=== PATIENT | female | born 1950 ===

== ENCOUNTER 2016-09-25 18:37 | Observation (INO) | payer OTHER ==
[~2016-09-25] VITALS: Ht 175.3 cm; Wt 96.0 kg
[~2016-09-25 18:37] MED LIST: ALBUTEROL HFA60 DOSE IN; ASCORBIC ACID500 MG PO; B COMPLEX PO; CO-ENZYME Q10100 MG PO; FLAX SEED PO; FOLIC ACID1 MG PO; LUNESTA3 MG PO; LUTEIN20 MG PO; MAG-OX 400400 MG PO; NAIL-EX2.5 MG PO; NATURAL VITA200 UNIT PO; OMEPRAZOLE20 M1 PO; SINGULAIR10 MG PO; TRAMADOL HCL50 MG PO; TUMS500 MG PO; VENLAFAXINE H37.5 MG PO; ZYRTEC ALLERGY10 MG PO; [UNRECOGNIZED DRUG - OTHER] PO
--- NOTE | 2016-09-25 19:19 | DIAGNOSTIC IMAGING REPORT ---
PROCEDURE: XR CHEST 1 VIEW INDICATION: SHORTNESS OF BREATH TECHNIQUE: Portable AP view (1910 hours). COMPARISON: None. FINDINGS: Allowing for overlying wires and electrodes, lungs are clear. Heart and mediastinum are normal. Thorax is normal. IMPRESSION: 1. Negative chest.
--- NOTE | 2016-09-25 20:08 | ED ORDER SUMMARY ---
..... Patient: NELSON COPE OrderSheet [facility] VisitID: [id number] [place] [address] 65y, F Registration Date/Time: 09/25/2016 ORDER SHEET Weight: 81.6 kg (stated) Allergies: NSAIDs GENERAL ORDERS: Chest 1V Urgent (18:58 09/25/2016 Shayla Case) (Ack 19:00 TBergley) (19:43 Tano) Cardiac Panel Stat (18:58 09/25/2016 Shayla Case) (18:59 TBergley) BNP Urgent (18:58 09/25/2016 Shayla Case) (18:59 TBergley) D-Dimer Urgent (18:58 09/25/2016 Shayla Case) (18:59 TBergley) PT with INR Urgent (19:43 09/25/2016 Shayla Case) (19:47 AMcQuoid ER Tech1) PTT Urgent (19:43 09/25/2016 Shayla Case) (19:47 AMcQuoid ER Tech1) Type & Cross (severe anemia) (duh) Urgent (19:47 09/25/2016 Shayla Case) (Ack 19:48 AMcQuoid ER Tech1) MEDICATION ORDERS: IV FLUIDS: Protonix IVP 80mg 80 mg (Mix in NS 20ml over 4min) (19:53 09/25/2016 Shayla Case) (20:06 Misha) ORDER SHEET NOTES: [Electronically signed by Ligia Chambers (20:44 09/25/2016)] [Electronically signed by Hector Flores Dr. (20:17 09/26/2016)] [Electronically locked/signed by Ligia Chambers (20:44 09/25/2016)]
--- NOTE | 2016-09-25 20:08 | ED NURSING NOTES ---
Clinical Report - Nurses [facility] [address] [place] [address] 09/25/2016 18:38 Patient: NELSON COPE TRIAGE Acuity: LEVEL 3. Chief Complaint: SHORTNESS OF BREATH and (fatigue). Alert. No acute distress. SEPSIS SCREEN: Sepsis Screen. Negative (no infection suspected/documented). --18:49 La Saldaña R.N. 18:42 09/25/16. BP: 142/56. HR: 100. RR: 20. O2 saturation: 100% on room air. Temp: 98 F (oral). Pain level now: 0/10. --18:49 La Saldaña R.N. Weight: 81.6 kg stated. Height/Length: 69 inches Per Patient. BMI: 26.6. --18:47 La Saldaña R.N. Medications Albuterol Sulfate Oral. Ascorbic Acid Oral. Co-Enzyme Q-10 Oral. Eszopiclone Oral. Maxalt Oral. Nasonex Nasal. Qvar Inhalation. Robaxin-750 Oral. Tramadol HCL Oral. Venlafaxine HCl Oral. Vitamin E Oral. ZyrTEC Allergy Oral. --18:45 La Saldaña R.N. Medication/allergy information source: the patient. --18:49 La Saldaña R.N. Allergies NSAIDs. Severe(Anaphylaxis) --18:46 La Saldaña R.N. History Arrived by private vehicle. Historian: patient. Unaccompanied. Primary physician (Harley). Onset. (several days ago). ( Pt reports she becomes SOB upon exertion and her heart rate goes up. She states a history of anemia.). Treatment GRAIN LOADER: None. PAST MEDICAL HX: The patient is post-menopausal. SOCIAL HX: Former smoker, end date 2007. Occasional alcohol use. History of occasional drug use: marijuana. FALL RISK ASSESSMENT: Fall risk assessment completed. No fall risk identified. NUTRITIONAL RISK ASSESSMENT: The nutritional risk assessment revealed no deficiencies. FUNCTIONAL ASSESSMENT: Functional assessment: no impairments noted. LEARNING NEEDS ASSESSMENT: The learning needs assessment revealed no barriers. SKIN INTEGRITY ASSESSMENT: Skin integrity risk assessment completed. No skin integrity risk identified. --18:49 La Saldaña R.N. PROBLEMS: Anemia. GI Bleeding. Depression. Anxiety Reaction. Mosiac Lung Disease. Hiatal Hernia. Asthma. --18:46 La Saldaña R.N. ADDITIONAL SURGERIES: Bone spur removal bilat. Bunionectomy right. Tonsillectomy. Tubal Ligation. --18:46 La Saldaña R.N. Assessment GENERAL / NEURO / PSYCH: Alert. Oriented X 4. Appears in no acute distress. Darian Coma Scale: 15- eyes open spontaneously (4); best verbal response- oriented x 4 (5); best motor response- obeys commands (6). Patient appears calm and cooperative. RESPIRATORY: Respirations not labored. CVS: Capillary refill less than 2 seconds. GI / : Abdomen soft and nontender. SKIN: Skin is pale. Mucous membranes are pink. Skin is warm and dry. --18:49 La Saldaña R.N. Interventions ID band on patient. To treatment room. --18:49 La Saldaña R.N. PHYSICAL ASSESSMENT 18:51 09/25/16. Ambulatory to room. GENERAL / NEURO / PSYCH: Alert. Oriented X 4. Appears in no acute distress. HEENT: Mucous membranes are pink. RESPIRATORY: No respiratory distress. Respirations not labored. CVS: Capillary refill less than 2 seconds. SKIN: Skin is pale. Skin is warm and dry. Normal skin turgor. --18:51 La Saldaña R.N. 18:53 09/25/16. CVS: Cardiac rhythm: sinus tachycardia. --18:53 La Saldaña R.N. NURSING PROGRESS NOTES 18:50 09/25/2016 Site #1 started via IV in the left antecubital space with an 20g angiocath, with aseptic technique and good blood return; one attempt. Blood drawn: rainbow set. Labeled in the presence of the patient and sent to the lab. Saline lock flushed with 10 mL saline (started by RAMAN Strong RN). --18:50 La Saldaña R.N. 18:50 09/25/16. grainer machine, pulse oximeter and NIBP monitor placed on patient; clearance diver- Lead II; monitor alarms on. Patient gowned. Two patient identifiers checked. Call light placed in reach. Side rails up x 2. Bed placed in lowest position. Brakes of bed on. Patient ready for evaluation- chart flagged and ED physician and CREW LEADER/CONTROL ROOM OPERATOR notified. --18:50 La Saldaña R.N. EKG time: (1849). EKG was ordered, performed by a tech and shown to the ED physician. --18:56 Merle Chaudhary Critical value relayed to ED by Lab. Critical value received by Ligia. Hgb: 5.5. Hct: 18.2. Critical value read back. Verified lab result and patient ID. ED physician and charge nurse notifed of critical value. Orders were not received. --19:22 Ligia Chambers ( Rectal exam performed by Dr. Flores, accompanied by DAHIANA Flores. Pt tolerated well. Specimen for hemoccult obtained.). --19:50 Mark Obregon R.N. 20:06 09/25/2016 PROTONIX (Pantoprazole Sodium) IVP 80 mg given. via site #1. Allergies verified and confirmed 5 rights. IV patency established. IV site checked: no pain, redness, or swelling. IV flushed thoroughly pre- and post-medication administration. IVP given by RN. --20:06 Ligia Chambers 20:10 09/25/16. BP: 124/56. HR: 90. RR: 20. O2 saturation: 100%. --20:12 Ligia Chambers. DISPOSITION / DISCHARGE Departure time: 2044. Report was given to a nurse via a phone call. Report included patient's care, treatment, medications, reviewed medication reconcilliation, and condition (including any recent changes or anticipated changes). All questions were answered. Report was acknowledged and care was transferred. --20:41 Ligia Chambers Transported via stretcher by transport team. Patient's personal items; items were transported with the patient. --20:41 Ligia Chambers. Locked/Released at 09/25/2016 20:44 by Ligia Chambers,
--- NOTE | 2016-09-25 20:08 | ED NURSING NOTES ---
Clinical Report - Nurses [facility] [address] [place] [address] 09/25/2016 18:38 Patient: NELSON COPE TRIAGE Acuity: LEVEL 3. Chief Complaint: SHORTNESS OF BREATH and (fatigue). Alert. No acute distress. SEPSIS SCREEN: Sepsis Screen. Negative (no infection suspected/documented). --18:49 La Saldaña R.N. 18:42 09/25/16. BP: 142/56. HR: 100. RR: 20. O2 saturation: 100% on room air. Temp: 98 F (oral). Pain level now: 0/10. --18:49 La Saldaña R.N. Weight: 81.6 kg stated. Height/Length: 69 inches Per Patient. BMI: 26.6. --18:47 La Saldaña R.N. Medications Albuterol Sulfate Oral. Ascorbic Acid Oral. Co-Enzyme Q-10 Oral. Eszopiclone Oral. Maxalt Oral. Nasonex Nasal. Qvar Inhalation. Robaxin-750 Oral. Tramadol HCL Oral. Venlafaxine HCl Oral. Vitamin E Oral. ZyrTEC Allergy Oral. --18:45 La Saldaña R.N. Medication/allergy information source: the patient. --18:49 La Saldaña R.N. Allergies NSAIDs. Severe(Anaphylaxis) --18:46 La Saldaña R.N. History Arrived by private vehicle. Historian: patient. Unaccompanied. Primary physician (Harley). Onset. (several days ago). ( Pt reports she becomes SOB upon exertion and her heart rate goes up. She states a history of anemia.). Treatment INSEAM TRIMMER: None. PAST MEDICAL HX: The patient is post-menopausal. SOCIAL HX: Former smoker, end date 2007. Occasional alcohol use. History of occasional drug use: marijuana. FALL RISK ASSESSMENT: Fall risk assessment completed. No fall risk identified. NUTRITIONAL RISK ASSESSMENT: The nutritional risk assessment revealed no deficiencies. FUNCTIONAL ASSESSMENT: Functional assessment: no impairments noted. LEARNING NEEDS ASSESSMENT: The learning needs assessment revealed no barriers. SKIN INTEGRITY ASSESSMENT: Skin integrity risk assessment completed. No skin integrity risk identified. --18:49 La Saldaña R.N. PROBLEMS: Anemia. GI Bleeding. Depression. Anxiety Reaction. Mosiac Lung Disease. Hiatal Hernia. Asthma. --18:46 La Saldaña R.N. ADDITIONAL SURGERIES: Bone spur removal bilat. Bunionectomy right. Tonsillectomy. Tubal Ligation. --18:46 La Saldaña R.N. Assessment GENERAL / NEURO / PSYCH: Alert. Oriented X 4. Appears in no acute distress. Darian Coma Scale: 15- eyes open spontaneously (4); best verbal response- oriented x 4 (5); best motor response- obeys commands (6). Patient appears calm and cooperative. RESPIRATORY: Respirations not labored. CVS: Capillary refill less than 2 seconds. GI / : Abdomen soft and nontender. SKIN: Skin is pale. Mucous membranes are pink. Skin is warm and dry. --18:49 La Saldaña R.N. Interventions ID band on patient. To treatment room. --18:49 La Saldaña R.N. PHYSICAL ASSESSMENT 18:51 09/25/16. Ambulatory to room. GENERAL / NEURO / PSYCH: Alert. Oriented X 4. Appears in no acute distress. HEENT: Mucous membranes are pink. RESPIRATORY: No respiratory distress. Respirations not labored. CVS: Capillary refill less than 2 seconds. SKIN: Skin is pale. Skin is warm and dry. Normal skin turgor. --18:51 La Saldaña R.N. 18:53 09/25/16. CVS: Cardiac rhythm: sinus tachycardia. --18:53 La Saldaña R.N. NURSING PROGRESS NOTES 18:50 09/25/2016 Site #1 started via IV in the left antecubital space with an 20g angiocath, with aseptic technique and good blood return; one attempt. Blood drawn: rainbow set. Labeled in the presence of the patient and sent to the lab. Saline lock flushed with 10 mL saline (started by RAMAN Strong RN). --18:50 La Saldaña R.N. 18:50 09/25/16. forest supervisor, pulse oximeter and NIBP monitor placed on patient; hotel server- Lead II; monitor alarms on. Patient gowned. Two patient identifiers checked. Call light placed in reach. Side rails up x 2. Bed placed in lowest position. Brakes of bed on. Patient ready for evaluation- chart flagged and ED physician and TECHNOLOGY INTEGRATION SPECIALIST notified. --18:50 La Saldaña R.N. EKG time: (1849). EKG was ordered, performed by a tech and shown to the ED physician. --18:56 Merle Chaudhary Critical value relayed to ED by Lab. Critical value received by Ligia. Hgb: 5.5. Hct: 18.2. Critical value read back. Verified lab result and patient ID. ED physician and charge nurse notifed of critical value. Orders were not received. --19:22 Ligia Chambers ( Rectal exam performed by Dr. Flores, accompanied by DAHIANA Flores. Pt tolerated well. Specimen for hemoccult obtained.). --19:50 Mark Obregon R.N. 20:06 09/25/2016 PROTONIX (Pantoprazole Sodium) IVP 80 mg given. via site #1. Allergies verified and confirmed 5 rights. IV patency established. IV site checked: no pain, redness, or swelling. IV flushed thoroughly pre- and post-medication administration. IVP given by RN. --20:06 Ligia Chambers 20:10 09/25/16. BP: 124/56. HR: 90. RR: 20. O2 saturation: 100%. --20:12 Ligia Chambers. DISPOSITION / DISCHARGE Departure time: 2044. Report was given to a nurse via a phone call. Report included patient's care, treatment, medications, reviewed medication reconcilliation, and condition (including any recent changes or anticipated changes). All questions were answered. Report was acknowledged and care was transferred. --20:41 Ligia Chambers Transported via stretcher by transport team. Patient's personal items; items were transported with the patient. --20:41 Ligia Chambers. Locked/Released at 09/25/2016 20:44 by Ligia Chambers,
--- NOTE | 2016-09-25 20:08 | ED CLINICAL REPORT ---
Clinical Report - Physicians/Mid Levels [facility] [address] [place] [address] 09/25/2016 18:38 Patient: NELSON COPE Time Seen: 18:53; initial patient contact. Arrived- By private vehicle. Historian- patient. HISTORY OF PRESENT ILLNESS Chief Complaint: DYSPNEA. This started several days ago and is still present. It was gradual in onset. The dyspnea is described as moderate and is worsened by walking and exertion and is improved by rest. No cough, sputum production, fever, sweating episodes or wheezing. No chills, chest pain or discomfort, calf pain or foot swelling. No anxiety. She has had dyspnea on exertion and palpitations. Similar symptoms previously: Several times. Recent medical care: Not recently seen/assessed. REVIEW OF SYSTEMS No nausea, vomiting, abdominal pain, diarrhea or bloody stools. No fainting episodes or blurred vision. She has had black stools. All systems otherwise negative, except as recorded above. PAST HISTORY Anemia. GI Bleeding. Depression. Anxiety Reaction. Mosiac Lung Disease. Hiatal Hernia. Asthma. SURGERIES: Bone spur removal bilat. Bunionectomy right. Tonsillectomy. Tubal Ligation. Medications: Albuterol Sulfate Oral. Ascorbic Acid Oral. Co-Enzyme Q-10 Oral. Eszopiclone Oral. Maxalt Oral. Nasonex Nasal. Qvar Inhalation. Robaxin-750 Oral. Tramadol HCL Oral. Venlafaxine HCl Oral. Vitamin E Oral. ZyrTEC Allergy Oral. Allergies: NSAIDs. Severe(Anaphylaxis). SOCIAL HISTORY Former smoker. Occasional alcohol use. History of occasional drug use: marijuana. ADDITIONAL NOTES The nursing notes have been reviewed. PHYSICAL EXAM Vital Signs: 09/25/2016 18:42 BP: 142/56. HR: 100. RR: 20. O2 saturation: 100%. Temp: 98 F. Pain level now: 0/10. Have been reviewed. Hypertensive. Tachycardic. Respiratory rate normal. Temperature normal. Oxygen saturation normal. Appearance: Alert. No acute distress. Eyes: Pale conjunctivae. ENT: Pharynx normal. Neck: Normal inspection. No jugular venous distention. CVS: Tachycardia. 1/6 systolic ejection murmur. Rhythm normal. Respiratory: No respiratory distress. Breath sounds normal. Abdomen: Soft and nontender. No organomegaly. The bowel sounds are not abnormal. Rectal: Strongly heme-positive stool; blood present in the stool; stools are dark colored; hemoccult research associate quality control qc check passed. (POC test reference range: negative). No digital exam tenderness. (Female RN Mark Man present for exam). Skin: Pale. Extremities: No calf tenderness. No lower extremity edema. Neuro: Oriented X 3. No motor deficit. LABS, X-RAYS, AND EKG EKG: EKG time: (1849). Normal sinus rhythm. Rate: 99. Normal P waves. Normal ÁNGEL. Normal QRS complex. Normal axis. Normal ST and T waves, QT and QTc. Prior EKG unavailable. The study has been interpreted contemporaneously by me. The study has been independently viewed by me. The EKG appears to be a good tracing. Interpretation time: 1849. Chest X-ray: No acute disease. Normal lung markings present. Normal heart size. No infiltrate. Views: AP. Technique: good. The X-rays were independently viewed by me and interpreted contemporaneously by me. Prior films were not available for comparison. Laboratory Tests: CBC w Diff: (VERONICA: 09/25/2016 18:50) ( MsgRcvd 09/25/2016 19:21) Final results Test Result Flag Units (Reference) WHITE BLOOD COUNT 11.3 K/uL (4.5-11.5) RED BLOOD COUNT 2.86 L M/uL (4.00-5.20) HEMOGLOBIN 5.5 *L gm/dL (12.0-16.0) CRITICAL RESULTS CALLEDCalled to Anjelica NG 09/25/161919Were 2 patient identifiers used? YWas the result read back? Y HEMATOCRIT 18.2 *L % (36.0-46.0) CRITICAL RESULTS CALLEDCalled to Anjelica NG 09/25/161919Were 2 patient identifiers used? YWas the result read back? Y MEAN CELL VOLUME 64 L fL (80-100) MEAN CORPUSCULAR HGB 19 L pg (26-34) MEAN CORPUSCULAR HGB CONC 30 L g/dL (31-37) RED CELL DISTRIBUTION WIDTH 19.2 H % (11.6-14.8) PLATELET COUNT 363 K/uL (150-400) NEUTROPHIL % 68.4 % (50-75) LYMPH % 18.5 L % (25-40) MONO % 11.3 % (3-14) EOSINOPHIL % 1.4 % (0-4) BASOPHIL % 0.4 % (0-2) PT with INR: (VERONICA: 09/25/2016 18:50) ( [facility] 09/25/2016 19:59) Final results Test Result Flag Units (Reference) INR 1.0 (0.8-1.2) Low Intensity Therapy: INR 1.5-2.0 PT range 18.5-23.1Mod.Intensity Therapy: INR 2.0-3.0 PT range 23.1-31.5High Intensity Therapy: INR 2.5-3.5 PT range 27.4-35.5High Intensity Therapy 2: INR 3.0-4.0 PT range 31.5-39.3 APTT 24 SECONDS (24-34) [id number]: (VERONICA: 09/25/2016 18:50) ( [facility] 09/25/2016 19:15) Final results Test Result Flag Units (Reference) D-DIMER QUANTITATIVE 1.42 H ug/mLFEU (0.27-0.52) The primary value of this quantitative assay relates toits negative predictive value (i.e. exclusion) of pulmonaryembolism/deep vein thrombosis/DIC.Elevated levels of d-dimer may also occur with:, age, cancer, inflammation, liver disease,post-op, infection, hematoma, coronary disease, peripheralarteriopathy, bleeding disorders and thrombolytic treatment.Results should be correlated with other clinical andradiological data.Testing Methodology: Latex Immunoassay BNP: (VERONICA: 09/25/2016 18:50) ( [facility] 09/25/2016 19:34) Final results Test Result Flag Units (Reference) B-TYPE NATRIURETIC PEPTIDE 122 H pg/ml (5-100) CHEM 13 PANEL: (VERONICA: 09/25/2016 18:50) ( MsgRcvd 09/25/2016 19:29) Final results Test Result Flag Units (Reference) GLUCOSE 98 mg/dL (70-110) BUN 29 H mg/dL (7-18) CREATININE 1.4 H mg/dL (0.6-1.3) Estimated GFR 40.24 mL/min Estimated GFR- 48.77 mL/min Note: Persistent reduction over 3 months in eGFR<60 mL/min/1.73 m2 defines CKD. Patients with eGFR values>=60 mL/min/1.73 m2 may also have CKD if evidence ofpersistent proteinuria. Additional information may be foundat www.kidney.org. SODIUM 141 mmol/L (136-145) POTASSIUM 4.6 mmol/L (3.5-5.1) CHLORIDE 107 mmol/L (98-107) CARBON DIOXIDE 23 mmol/L (21-32) CALCIUM 8.1 L mg/dL (8.5-10.1) TOTAL PROTEIN 6.4 g/dL (6.4-8.2) ALBUMIN 3.3 g/dL (3.3-5.0) BILIRUBIN, TOTAL 0.3 mg/dL (0.0-1.0) ALKALINE PHOSPHATASE 58 U/L (46-116) AST (SGOT) 11 L U/L (15-37) ALT (SGPT) 16 U/L (12-78) MAGNESIUM 1.8 mg/dL (1.8-2.4) CPK 56 U/L (24-260) TROPONIN I 0.07 ng/mL (0.00-1.5) TROPONIN REFERENCE RANGE:<0.1 NEGATIVE0.1-1.5 INDETERMINANT>1.5 POSITIVE . PROGRESS AND PROCEDURES Critical care performed (60 minutes). Time includes: direct patient care, patient reassessment, coordination of patient care, interpretation of data (laboratory data, pulse oximetry, chest xrays and prior electrocardiograms), review of patient's medical records, medical consultation and documentation of patient care. The patient required critical care due to the acute impairment of vital organ systems (cardiovascular and hematologic) and a high probability of imminent deterioration. Multiple emergent interventions were required to prevent sudden deterioration. Discussed case with hospitalist, (20:10 Dr. Vazquez, will palce in obs and consult Sx). Reviewed test results and need for additional work-up. Agreed upon treatment plan. Health care provider will see patient in ED. Consult obtained from surgery. call returned 20:25 Dr. Hall, will see pt in the AM and EGD. Phone consult only. Will see patient in the hospital tomorrow. Disposition: Observation in Acute Care. Condition: good. CLINICAL IMPRESSION Major GI bleed with melena. Severe acute anemia associated with acute blood loss. INSTRUCTIONS Follow-up: Screening today revealed the patient's blood pressure to be in the pre-hypertensive range. The patient was admitted and blood pressure will be managed during the admission. (Electronically signed by Hector Flores Dr. 09/26/2016 20:17)
--- NOTE | 2016-09-25 20:08 | ED ORDER SUMMARY ---
..... Patient: NELSON COPE OrderSheet [facility] VisitID: [id number] [place] [address] 65y, F Registration Date/Time: 09/25/2016 ORDER SHEET Weight: 81.6 kg (stated) Allergies: NSAIDs GENERAL ORDERS: Chest 1V Urgent (18:58 09/25/2016 Shayla Case) (Ack 19:00 TBergley) (19:43 Tano) Cardiac Panel Stat (18:58 09/25/2016 Shayla Case) (18:59 TBergley) BNP Urgent (18:58 09/25/2016 Shayla Case) (18:59 TBergley) D-Dimer Urgent (18:58 09/25/2016 Shayla Case) (18:59 TBergley) PT with INR Urgent (19:43 09/25/2016 Shayla Case) (19:47 AMcQuoid ER Tech1) PTT Urgent (19:43 09/25/2016 Shayla Case) (19:47 AMcQuoid ER Tech1) Type & Cross (severe anemia) (duh) Urgent (19:47 09/25/2016 Shayla Case) (Ack 19:48 AMcQuoid ER Tech1) MEDICATION ORDERS: IV FLUIDS: Protonix IVP 80mg 80 mg (Mix in NS 20ml over 4min) (19:53 09/25/2016 Shayla Case) (20:06 Misha) ORDER SHEET NOTES: [Electronically signed by Ligia Chambers (20:44 09/25/2016)] [Electronically signed by Hector Flores Dr. (20:17 09/26/2016)] [Electronically locked/signed by Ligia Chambers (20:44 09/25/2016)]
[2016-09-25 21:03] VITALS: BP 145/63
--- NOTE | 2016-09-25 21:29 | Progress Note ---
Subjective General Admission History and Physical Examination Patient Name: Ms. Kelly Herron Admission Date: 09/25/2016 Primary Care Provider: Sasha Souza D.O., [facility] Attending Physician: Jean Vazquez M.D. Admitting Physician: Jean Vazquez M.D. Code Status: Code Room: SUBJECTIVE Historian: Patient Reliability: Very good Chief Complaint: CC: Shortness of breath, palpitations with activity Anemia History of Present Illness: The patient is a 65-year-old white female with a significant past medical history of asthma, sleep disorder, depression, chronic back and heel who presented to [facility] emergency room on the day of admission secondary to complaints dyspnea and SOB with associated rapid heartbeat with movement. Patient reported that she had been into donate blood at the local blood bank. There are was discovered that her iron was quite low. Patient also reported weakness and tiredness. The [facility] ER evaluation was consistent with blood loss anemia. Secondary to the above, the patient was admitted by Jean Vazquez M.D. for further evaluation and treatment. Patient states that she had a recent 2 week history of feeling tired and weak. Patient most recently had been in for a blood donation at the local blood bank. There was discovered that her iron levels and hematocrit was low. Therefore, she is not eligible for blood donation. Reports that she had not been in to see her primary care provider. Attempted to continue to work through it. Patient had worsening symptoms today. Patient attempted to follow her normal work schedule. Patient however felt breathless and her heart began to pound during the day. Patient has a history of a stomach bleed in 2014. Patient is hospitalized at that time, his [facility] and she was given 2 units of PRBCs. Patient was seen for a scope procedure by Dr. Hall. No significant findings were noted. PAST MEDICAL HISTORY Illnesses: 1. Sleep disorder. 2. Chronic lower back pain, foot, ankle pain. 3. Depression 4. Asthma. 5. Anxiety Allergies: 1. Aspirin. 2. NSAIDs including ibuprofen. 3. Cats. Medications: 1. Ezopiclone 3mg po daily 2. Tramadol 50 mg by mouth twice a day. 3. Venlafaxine 37.5 mg daily. 4. Montelukast 10 mg po daily 5.Norththindrone 10mg po Q48 hours 6. Estradiol 0.5 mg every 48 hours. 7. Maxalt 10 micrograms when necessary 8. Restasis 0.05 mg by mouth twice a day 9. [place]-3 fatty acids daily 10. Zyrtec 10 mg by mouth daily Surgery: 1. Tubal ligation. 2. Tonsillectomy. 3. Endoscopy Injuries: 1. No significant injuries Hospitalizations: 1. 2015 GI bleed FAMILY HISTORY Parents: 1. Father, healthy living at age 89. 2. Mother Alzheimer's dementia 86 Siblings: 1. Sister recently passing December 2014 from complications related to diabetes, Children: 1. None SOCIAL HISTORY 1. Marital Status: Single, never 2. Shinto: None jew identity 3. 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 Occupational health exposures: None identified HABITS 1. Tobacco: Stopped smoking 6 months ago Prior 30 last year smoking history 2. Drugs: Last had marijuana 1 week ag; social use. Last time used was more than 20 years prior 3. Alcohol: Last had alcohol one week one beer; drinker, rare 4. Caffeine: None HEALTH SUPERVISION Item/Test 1. Vision screen: Completed 2. Cholesterol Profile: One year normal 3. Colonoscopy: Last on 2014 4. History and physical exam: Annually for January 10. Audiogram: Annual 6. Mammogram: One year previous. No problems 7. Pap/pelvic exam: 2 years. No problems IMMUNIZATIONS: 1. Pneumococcal: up to date ADVANCED DIRECTIVES: 1. Living well: Prepared; in the presence of present 2. POLST: None 3. Code Status: no code 4. Durable Power Pigment [employer] Lacquer Mixer Health care: [id number]: Carlton Ochoa, 5. Donor card: Unknown REVIEW OF SYSTEMS Remarkable for those things stated in the history of present illness and past medical history. Seventeen point review of system completed with the following notable findings: ROS Constitutional Weakness, Other (pallor). Denies: Fever. Eyes Other (dry eyes). Denies: Pain. Respiratory SOB w/exertion. Denies: Wheezing. Cardiovascular Other (rapid). Denies: Chest Pain, Palpitations. Gastrointestinal Other (a previous GI bleed). Neurological Weakness. Denies: Numbness, Change in speech, Confusion. Physical Exam Vital Signs / I&Os Vital Signs Date Time Temp Pulse Resp B/P Pulse O2 O2 Flow FiO2 Ox Delivery Rate 09/25 2102 98.8 87 20 145/63 99 Room Air General Appearance Oriented X3, Cooperative, No acute distress HEENT Atraumatic Lungs Clear to auscultation, Normal air movement Neck Supple, No JVD Cardiovascular Regular rate and rhythm, Normal S1 and S2, possible 2/6 systolic Abdomen Soft, No tenderness Extremities No cyanosis, No clubbing Neurological Normal gait, Normal speech Psych/Mental Status Mood normal LAB Results Laboratory Tests 09/25 09/25 1850 1850 Chemistry Plasma Sodium (136 - 145 mmol/L) 141 Plasma Potassium (3.5 - 5.1 mmol/L) 4.6 Plasma Chloride (98 - 107 mmol/L) 107 CO2 (Enzymatic) (21 - 32 mmol/L) 23 BUN (7 - 18 mg/dL) 29 Creatinine (0.6 - 1.3 mg/dL) 1.4 Est GFR ( Amer) (mL/min) 48.77 Est GFR (Non-Af Amer) (mL/min) 40.24 Glucose (70 - 110 mg/dL) 98 Plasma Calcium (8.5 - 10.1 mg/dL) 8.1 Plasma Magnesium (1.8 - 2.4 mg/dL) 1.8 Total Bilirubin (0.0 - 1.0 mg/dL) 0.3 AST (15 - 37 U/L) 11 ALT (12 - 78 U/L) 16 Alkaline Phosphatase (46 - 116 U/L) 58 Creatine Kinase (24 - 260 U/L) 56 Troponin (0.00 - 1.5 ng/mL) 0.07 B-Natriuretic Peptide (5 - 100 pg/ml) 122 Total Protein (6.4 - 8.2 g/dL) 6.4 Albumin (3.3 - 5.0 g/dL) 3.3 Coagulation INR (0.8 - 1.2) 1.0 APTT (24 - 34 SECONDS) 24 D-Dimer, Quantitative (0.27 - 0.52 ug/mLFEU) 1.42 Hematology WBC (4.5 - 11.5 K/uL) 11.3 RBC (4.00 - 5.20 M/uL) 2.86 Hgb (12.0 - 16.0 gm/dL) 5.5 Hct (36.0 - 46.0 %) 18.2 MCV (80 - 100 fL) 64 MCH (26 - 34 pg) 19 RDW (11.6 - 14.8 %) 19.2 Neut % (Auto) (50 - 75 %) 68.4 Lymph % (Auto) (25 - 40 %) 18.5 [place] % (Auto) (3 - 14 %) 11.3 Eos % (Auto) (0 - 4 %) 1.4 Baso % (Auto) (0 - 2 %) 0.4 Plt Count, EDTA (150 - 400 K/uL) 363 RBC Morphology (7486 A) 1+ HYPOCHROMASIA PUBS MCHC (31 - 37 g/dL) 30 Imaging Chest x-ray done on 09/25/2016. Seen as a negative chest Assessment and Plan Problem List 1. GI bleed Qualifiers GI bleed type/associated pathology: melena Qualified Code: K92.1 - Melena Status Acute Plan Patient had a prior GI bleed. Nothing was necessarily discovered on endoscopy. This is not necessarily related to NSAID induced, patient has not had significant alcohol over the past 6 months to year. Patient is not on iron supplementation. Last menstrual period was sometime ago. Patient MCV is low at 64. Hemoglobin 5.5. Appears to have mild renal insufficiency (undetermined pre-renal azotemia) with a BUN 29, creatinine 1.4. Having a FENA would be appropriate, but will hold off. The d-dimer is slightly elevated in the setting of no chest pain, low probability for PE. We'll start patient on fluid hydration, follow-up electrolytes in the a.m, along with magnesium. Consults: General surgery for potential upper and lower endoscopy. She has been crossmatched 2 units of PRBC. Serial H&H every 4 hours the next 24 hours. Watch for any further signs of bleeding. If further drop in H&H. We'll plan to start on an octreotide and call in for an emergent endoscopy. 2. Anemia Plan Most likely related to blood loss. Current hemoglobins at 5.5, MCV is 64. Dictated harm panel to be placed on earlier labs; if not, then this will been on [facility]. May need is starting some form of iron supplementation. Patient received 2 units PRBCs followed by recheck. 3. Ulcer, gastric, acute Plan Likely gastric ulcer or gastritis causing blood loss anemia. Patient is been under undue stress recently. Therefore , probability for an emotionally induced GI ulceration. However, overlooked the possibility of a rare neuroendocine tumor. 4. SOB (shortness of breath) Plan Shortness of breath is secondary to the anemia Current status: Fair. stable Anticipated discharge date: 1- days from admission Anticipated discharge placement: Home Patient care time: Time spent in chart review, patient interview, physical exam, CPOE, and care documentation: 70 minutes Visit to patient today: 1 Complexity of care: Mild-moderate. E&M Codes Admit & Discharge: Comp/High/[id number]
--- NOTE | 2016-09-25 21:29 | Progress Note ---
Subjective General Admission History and Physical Examination Patient Name: Ms. Kelly Herron Admission Date: 09/25/2016 Primary Care Provider: Sasha Souza D.O., [facility] Attending Physician: Jean Vazquez M.D. Admitting Physician: Jean Vazquez M.D. Code Status: Code Room: SUBJECTIVE Historian: Patient Reliability: Very good Chief Complaint: CC: Shortness of breath, palpitations with activity Anemia History of Present Illness: The patient is a 65-year-old white female with a significant past medical history of asthma, sleep disorder, depression, chronic back and heel who presented to [facility] emergency room on the day of admission secondary to complaints dyspnea and SOB with associated rapid heartbeat with movement. Patient reported that she had been into donate blood at the local blood bank. There are was discovered that her iron was quite low. Patient also reported weakness and tiredness. The [facility] ER evaluation was consistent with blood loss anemia. Secondary to the above, the patient was admitted by Jean Vazquez M.D. for further evaluation and treatment. Patient states that she had a recent 2 week history of feeling tired and weak. Patient most recently had been in for a blood donation at the local blood bank. There was discovered that her iron levels and hematocrit was low. Therefore, she is not eligible for blood donation. Reports that she had not been in to see her primary care provider. Attempted to continue to work through it. Patient had worsening symptoms today. Patient attempted to follow her normal work schedule. Patient however felt breathless and her heart began to pound during the day. Patient has a history of a stomach bleed in 2014. Patient is hospitalized at that time, his [facility] and she was given 2 units of PRBCs. Patient was seen for a scope procedure by Dr. Hall. No significant findings were noted. PAST MEDICAL HISTORY Illnesses: 1. Sleep disorder. 2. Chronic lower back pain, foot, ankle pain. 3. Depression 4. Asthma. 5. Anxiety Allergies: 1. Aspirin. 2. NSAIDs including ibuprofen. 3. Cats. Medications: 1. Ezopiclone 3mg po daily 2. Tramadol 50 mg by mouth twice a day. 3. Venlafaxine 37.5 mg daily. 4. Montelukast 10 mg po daily 5.Norththindrone 10mg po Q48 hours 6. Estradiol 0.5 mg every 48 hours. 7. Maxalt 10 micrograms when necessary 8. Restasis 0.05 mg by mouth twice a day 9. [place]-3 fatty acids daily 10. Zyrtec 10 mg by mouth daily Surgery: 1. Tubal ligation. 2. Tonsillectomy. 3. Endoscopy Injuries: 1. No significant injuries Hospitalizations: 1. 2015 GI bleed FAMILY HISTORY Parents: 1. Father, healthy living at age 89. 2. Mother Alzheimer's dementia 86 Siblings: 1. Sister recently passing December 2014 from complications related to diabetes, Children: 1. None SOCIAL HISTORY 1. Marital Status: Single, never 2. Tenriism: None religion identity 3. 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 Occupational health exposures: None identified HABITS 1. Tobacco: Stopped smoking 6 months ago Prior 30 last year smoking history 2. Drugs: Last had marijuana 1 week ag; social use. Last time used was more than 20 years prior 3. Alcohol: Last had alcohol one week one beer; drinker, rare 4. Caffeine: None HEALTH SUPERVISION Item/Test 1. Vision screen: Completed 2. Cholesterol Profile: One year normal 3. Colonoscopy: Last on 2014 4. History and physical exam: Annually for January 10. Audiogram: Annual 6. Mammogram: One year previous. No problems 7. Pap/pelvic exam: 2 years. No problems IMMUNIZATIONS: 1. Pneumococcal: up to date ADVANCED DIRECTIVES: 1. Living well: Prepared; in the presence of present 2. POLST: None 3. Code Status: no code 4. Durable Power [facility] Insurance Representative Health care: [id number]: Carlton Ochoa, 5. Donor card: Unknown REVIEW OF SYSTEMS Remarkable for those things stated in the history of present illness and past medical history. Seventeen point review of system completed with the following notable findings: ROS Constitutional Weakness, Other (pallor). Denies: Fever. Eyes Other (dry eyes). Denies: Pain. Respiratory SOB w/exertion. Denies: Wheezing. Cardiovascular Other (rapid). Denies: Chest Pain, Palpitations. Gastrointestinal Other (a previous GI bleed). Neurological Weakness. Denies: Numbness, Change in speech, Confusion. Physical Exam Vital Signs / I&Os Vital Signs Date Time Temp Pulse Resp B/P Pulse O2 O2 Flow FiO2 Ox Delivery Rate 09/25 2102 98.8 87 20 145/63 99 Room Air General Appearance Oriented X3, Cooperative, No acute distress HEENT Atraumatic Lungs Clear to auscultation, Normal air movement Neck Supple, No JVD Cardiovascular Regular rate and rhythm, Normal S1 and S2, possible 2/6 systolic Abdomen Soft, No tenderness Extremities No cyanosis, No clubbing Neurological Normal gait, Normal speech Psych/Mental Status Mood normal LAB Results Laboratory Tests 09/25 09/25 1850 1850 Chemistry Plasma Sodium (136 - 145 mmol/L) 141 Plasma Potassium (3.5 - 5.1 mmol/L) 4.6 Plasma Chloride (98 - 107 mmol/L) 107 CO2 (Enzymatic) (21 - 32 mmol/L) 23 BUN (7 - 18 mg/dL) 29 Creatinine (0.6 - 1.3 mg/dL) 1.4 Est GFR ( Amer) (mL/min) 48.77 Est GFR (Non-Af Amer) (mL/min) 40.24 Glucose (70 - 110 mg/dL) 98 Plasma Calcium (8.5 - 10.1 mg/dL) 8.1 Plasma Magnesium (1.8 - 2.4 mg/dL) 1.8 Total Bilirubin (0.0 - 1.0 mg/dL) 0.3 AST (15 - 37 U/L) 11 ALT (12 - 78 U/L) 16 Alkaline Phosphatase (46 - 116 U/L) 58 Creatine Kinase (24 - 260 U/L) 56 Troponin (0.00 - 1.5 ng/mL) 0.07 B-Natriuretic Peptide (5 - 100 pg/ml) 122 Total Protein (6.4 - 8.2 g/dL) 6.4 Albumin (3.3 - 5.0 g/dL) 3.3 Coagulation INR (0.8 - 1.2) 1.0 APTT (24 - 34 SECONDS) 24 D-Dimer, Quantitative (0.27 - 0.52 ug/mLFEU) 1.42 Hematology WBC (4.5 - 11.5 K/uL) 11.3 RBC (4.00 - 5.20 M/uL) 2.86 Hgb (12.0 - 16.0 gm/dL) 5.5 Hct (36.0 - 46.0 %) 18.2 MCV (80 - 100 fL) 64 MCH (26 - 34 pg) 19 RDW (11.6 - 14.8 %) 19.2 Neut % (Auto) (50 - 75 %) 68.4 Lymph % (Auto) (25 - 40 %) 18.5 [place] % (Auto) (3 - 14 %) 11.3 Eos % (Auto) (0 - 4 %) 1.4 Baso % (Auto) (0 - 2 %) 0.4 Plt Count, EDTA (150 - 400 K/uL) 363 RBC Morphology (7486 A) 1+ HYPOCHROMASIA PUBS MCHC (31 - 37 g/dL) 30 Imaging Chest x-ray done on 09/25/2016. Seen as a negative chest Assessment and Plan Problem List 1. GI bleed Qualifiers GI bleed type/associated pathology: melena Qualified Code: K92.1 - Melena Status Acute Plan Patient had a prior GI bleed. Nothing was necessarily discovered on endoscopy. This is not necessarily related to NSAID induced, patient has not had significant alcohol over the past 6 months to year. Patient is not on iron supplementation. Last menstrual period was sometime ago. Patient MCV is low at 64. Hemoglobin 5.5. Appears to have mild renal insufficiency (undetermined pre-renal azotemia) with a BUN 29, creatinine 1.4. Having a FENA would be appropriate, but will hold off. The d-dimer is slightly elevated in the setting of no chest pain, low probability for PE. We'll start patient on fluid hydration, follow-up electrolytes in the a.m, along with magnesium. Consults: General surgery for potential upper and lower endoscopy. She has been crossmatched 2 units of PRBC. Serial H&H every 4 hours the next 24 hours. Watch for any further signs of bleeding. If further drop in H&H. We'll plan to start on an octreotide and call in for an emergent endoscopy. 2. Anemia Plan Most likely related to blood loss. Current hemoglobins at 5.5, MCV is 64. Dictated harm panel to be placed on earlier labs; if not, then this will been on [facility]. May need is starting some form of iron supplementation. Patient received 2 units PRBCs followed by recheck. 3. Ulcer, gastric, acute Plan Likely gastric ulcer or gastritis causing blood loss anemia. Patient is been under undue stress recently. Therefore , probability for an emotionally induced GI ulceration. However, overlooked the possibility of a rare neuroendocine tumor. 4. SOB (shortness of breath) Plan Shortness of breath is secondary to the anemia Current status: Fair. stable Anticipated discharge date: 1- days from admission Anticipated discharge placement: Home Patient care time: Time spent in chart review, patient interview, physical exam, CPOE, and care documentation: 70 minutes Visit to patient today: 1 Complexity of care: Mild-moderate. E&M Codes Admit & Discharge: Comp/High/[id number]
[2016-09-25] MEDS ORDERED: ESTRADIOL0.5 MG PO (22:04)
[2016-09-25] MEDS ORDERED: [UNRECOGNIZED DRUG - OTHER] PO (22:08)
[2016-09-25] MEDS ORDERED: RESTASIS0.05 % OP (22:09)
[2016-09-25 22:26] VITALS: BP 164/65
--- NOTE | 2016-09-25 23:30 | NUR ---
Admitted with shortness of breath and easy fatiguability. She looks pale and came in with a low blood count. She is due for 2 units PRBC tonight and is for a repeat H & H in the morning.
[2016-09-25 23:38] VITALS: BP 149/71
[2016-09-25 23:53] VITALS: BP 139/68
[2016-09-26] VITALS (12 sets, daily range): BP systolic 109–168; BP diastolic 43–70
--- NOTE | 2016-09-26 05:27 | Progress Note ---
Subjective General ADVANCED CARE PLAN History of Present Illness 65-year-old white female with a significant past medical history of asthma, sleep disorder, depression, chronic back and heel who presented to [facility] emergency room on the day of admission secondary to complaints dyspnea and SOB with associated rapid heartbeat with movement. Patient reported that she had been into donate blood at the local blood bank. There it was discovered that her iron was quite low. Patient also reported weakness and tiredness. The [facility] ER evaluation was consistent with blood loss anemia. Secondary to the above, the patient was admitted by Jean Vazquez M.D. for further evaluation and treatment. A discussion was undertaken with the patient regarding previous advance care arrangements/decisions. The following advanced directives were noted by the patient and discussed with me at the time of admission. ADVANCED DIRECTIVES: 1. Living well: yes 2. POLST: none 3. CODE STATUS: No Code 4. Durable Power Fiscal ManagerCounts include [facility] beds at the [facility] care: yes; Carlton Ochoa, 5. Donor card: none The patient has expressed interest in not pursuing any form of resuscitation at this time. She has opted not to pursue intubation/mechanical ventilation, CPR, electrical cardioversion, or life-sustaining efforts involving drugs at the time of cardiopulmonary arrest. The patient's wishes were documented in the chart and orders regarding the patient's wishes entered into the [employer] CPOE system. The "Advance Care Plan Document" was not distributed to patient to discuss with her family. Less than 30 minutes was spent in performing the above tasks and documentation of the patient's advanced care plan.
--- NOTE | 2016-09-26 05:27 | Progress Note ---
Subjective General ADVANCED CARE PLAN History of Present Illness 65-year-old white female with a significant past medical history of asthma, sleep disorder, depression, chronic back and heel who presented to [facility] emergency room on the day of admission secondary to complaints dyspnea and SOB with associated rapid heartbeat with movement. Patient reported that she had been into donate blood at the local blood bank. There it was discovered that her iron was quite low. Patient also reported weakness and tiredness. The [facility] ER evaluation was consistent with blood loss anemia. Secondary to the above, the patient was admitted by Jean Vazquez M.D. for further evaluation and treatment. A discussion was undertaken with the patient regarding previous advance care arrangements/decisions. The following advanced directives were noted by the patient and discussed with me at the time of admission. ADVANCED DIRECTIVES: 1. Living well: yes 2. POLST: none 3. CODE STATUS: No Code 4. Durable Power [facility] care: yes; Carlton Ochoa, 5. Donor card: none The patient has expressed interest in not pursuing any form of resuscitation at this time. She has opted not to pursue intubation/mechanical ventilation, CPR, electrical cardioversion, or life-sustaining efforts involving drugs at the time of cardiopulmonary arrest. The patient's wishes were documented in the chart and orders regarding the patient's wishes entered into the [employer] CPOE system. The "Advance Care Plan Document" was not distributed to patient to discuss with her family. Less than 30 minutes was spent in performing the above tasks and documentation of the patient's advanced care plan.
--- NOTE | 2016-09-26 06:50 | NUR ---
2 UNITS OF BLOOD TRANSFUSED WITH NO UNTOWARD REACTIONS.
--- NOTE | 2016-09-26 09:15 | NUR ---
RECEIVED PT UP IN THE CHAIR, AWAKE, ALERT, ORIENTED, COHERENT, COOPERATIVE. V/S TAKEN AND RECORDED. ASSESSMENT DONE. PT DENIE PAIN, NAUSEA AND VOMITING, SOB AT THIS TIME. PT TOLERATED HER MEALS GOOD. ATE 50 %. BUT PT SHOULD BE NPO. SEEN BY DR TAMAYO, NPO INSTURC.
--- NOTE | 2016-09-26 09:15 | NUR ---
SEEN AND EXAMINED BY BELKIS WITH ORDERS MADE AND CARRIED OUT. NPO INTRUC., SEEN BY MS HERNANDEZ AND DR MANDUJANO TOO FOR EDG TODAY. MAINTAINED ON NPO.
--- NOTE | 2016-09-26 09:22 | Progress Note ---
Subjective General The patient is a 65-year-old white female with a significant past medical history of asthma, sleep disorder, depression, chronic back and heel who presented to [facility] emergency room on the day of admission secondary to complaints dyspnea and SOB with associated rapid heartbeat with movement. Patient reported that she had been into donate blood at the local blood bank. There are was discovered that her iron was quite low. Patient also reported weakness and tiredness. The [facility] ER evaluation was consistent with blood loss anemia. Secondary to the above, the patient was admitted by Jean Vazquez M.D. for further evaluation and treatment. No nausea vomiting, no abd. pain, had coffee ground BM, no fever or chills, no cp, no dyspnea,had breakfast this AM! Review of system: GI: Negative for nausea vomiting no abdominal pain but had coffee-ground bowel movements Constitutional: No fever no chills Respiratory system: No shortness of breath no chest pain Physical Exam Vital Signs / I&Os Vital Signs Date Time Temp Pulse Resp B/P Pulse O2 O2 Flow FiO2 Ox Delivery Rate 09/26 0623 98.4 73 18 137/43 100 09/26 0508 98.1 71 14 148/69 100 09/26 0452 98.2 69 14 146/66 100 09/26 0401 98.4 74 15 168/55 99 09/26 0306 98.4 73 16 149/65 98 Room Air 09/26 0119 98.4 77 15 147/66 100 09/26 0049 73 15 155/70 100 09/26 0012 77 16 132/69 98 09/25 2353 98.6 80 17 139/68 100 09/25 2338 98.2 76 16 149/71 100 Room Air 09/25 2226 98.1 86 18 164/65 100 Room Air 09/25 2103 98.8 87 20 145/63 99 Room Air I&O 09/26 0000 09/25 1600 09/25 0800 Intake Total Output Total 900 Balance -900 General Appearance No acute distress Lungs Clear to auscultation Neck Supple Cardiovascular Regular rate and rhythm, Normal S1 and S2, No murmurs, gallops, rubs Abdomen Normal bowel sounds, Soft, No tenderness Extremities No edema Skin No Rashes Psych/Mental Status Mental status normal LAB Results Laboratory Tests 09/26 09/26 09/26 09/25 09/25 1203 0751 0354 2345 1850 Chemistry Plasma Sodium (136 - 145 mmol/L) 140 Plasma Potassium (3.5 - 5.1 mmol/L) 4.2 Plasma Chloride (98 - 107 mmol/L) 107 CO2 (Enzymatic) (21 - 32 mmol/L) 22 BUN (7 - 18 mg/dL) 19 Creatinine (0.6 - 1.3 mg/dL) 1.0 Est GFR ( Amer) (mL/min) >60 Est GFR (Non-Af Amer) (mL/min) 59.33 Glucose (70 - 110 mg/dL) 94 Plasma Calcium (8.5 - 10.1 mg/dL) 7.8 Plasma Magnesium (1.8 - 2.4 mg/dL) 1.9 Iron (35 - 150 ug/dL) Pending TIBC (260 - 445 ug/dL) 379 Iron Saturation (15 - 50 %) Pending B-Natriuretic Peptide (5 - 100 pg/ml) 122 Coagulation INR (0.8 - 1.2) 1.0 D-Dimer, Quantitative (0.27 - 0.52 ug/mLFEU) 1.42 Hematology Hgb (12.0 - 16.0 gm/dL) 7.5 7.5 6.9 5.1 Hct (36.0 - 46.0 %) 24.3 24.1 22.8 17.4 09/25 1849 Chemistry Plasma Sodium (136 - 145 mmol/L) 141 Plasma Potassium (3.5 - 5.1 mmol/L) 4.6 Plasma Chloride (98 - 107 mmol/L) 107 CO2 (Enzymatic) (21 - 32 mmol/L) 23 BUN (7 - 18 mg/dL) 29 Creatinine (0.6 - 1.3 mg/dL) 1.4 Est GFR ( Amer) (mL/min) 48.77 Est GFR (Non-Af Amer) (mL/min) 40.24 Glucose (70 - 110 mg/dL) 98 Plasma Calcium (8.5 - 10.1 mg/dL) 8.1 Plasma Magnesium (1.8 - 2.4 mg/dL) 1.8 Total Bilirubin (0.0 - 1.0 mg/dL) 0.3 AST (15 - 37 U/L) 11 ALT (12 - 78 U/L) 16 Alkaline Phosphatase (46 - 116 U/L) 58 Creatine Kinase (24 - 260 U/L) 56 Troponin (0.00 - 1.5 ng/mL) 0.07 Total Protein (6.4 - 8.2 g/dL) 6.4 Albumin (3.3 - 5.0 g/dL) 3.3 Coagulation INR (0.8 - 1.2) 1.0 APTT (24 - 34 SECONDS) 24 Hematology WBC (4.5 - 11.5 K/uL) 11.3 RBC (4.00 - 5.20 M/uL) 2.86 Hgb (12.0 - 16.0 gm/dL) 5.5 Hct (36.0 - 46.0 %) 18.2 MCV (80 - 100 fL) 64 MCH (26 - 34 pg) 19 RDW (11.6 - 14.8 %) 19.2 Neut % (Auto) (50 - 75 %) 68.4 Lymph % (Auto) (25 - 40 %) 18.5 [place] % (Auto) (3 - 14 %) 11.3 Eos % (Auto) (0 - 4 %) 1.4 Baso % (Auto) (0 - 2 %) 0.4 Plt Count, EDTA (150 - 400 K/uL) 363 RBC Morphology (7486 A) 1+ HYPOCHROMASIA PUBS MCHC (31 - 37 g/dL) 30 Assessment and Plan Problem List 1. GI bleed Qualifiers GI bleed type/associated pathology: melena Qualified Code: K92.1 - Melena Status Acute Plan will make patient NPO, needs to be seen by surgery, monitor H&H 2. Ulcer, gastric, acute Plan will need EGD possible colonoscopy 3. Anemia Plan due to number 1, will monior H&H
--- NOTE | 2016-09-26 13:45 | NUR ---
DR TAMAYO NOTIFIED REFARDING H/H RESULT, [phone]. PT IS REQUESTING A TRAMADOL PO FOR HER ARTHRITIS. NO ORDERS WERE MADE.
--- NOTE | 2016-09-26 15:25 | NUR ---
PT WENT TO SURGERY VIS [facility].
--- NOTE | 2016-09-26 16:21 | NUR ---
PATIENT ARRIVED TO PACU AT 1614. SPONT RESP. AROUSABLE. VITALS STABLE. DENIES PAIN AND NAUSEA. WILL CONTINUE TO MONITOR.
--- NOTE | 2016-09-26 18:35 | Progress Note ---
Subjective General Patient's egd unremarkable. Patient wants to go home. Asymptomatic. No chest pain. No shortness of breath. No active bleeding. Ok to discharge home per dr. kendrick and dr. subramanian. will d/c home on po iron. advised to follow up with pcp for a repeat hgb and hct in 2-3 days. follow up with dr. kendrick as an outpatient for colonoscopy
[2016-09-26] MEDS ORDERED: IRON325 MG PO (18:39)
--- NOTE | 2016-09-26 18:42 | Provider's Discharge Care Plan ---
Problem, Goal, Plan Problem List 1. Anemia Instructions: follow up with your pcp for a repeat blood count, schedule colonoscopy with dr. zhong
--- NOTE | 2016-09-26 18:42 | Provider's Discharge Care Plan ---
Problem, Goal, Plan Problem List 1. Anemia Instructions: follow up with your pcp for a repeat blood count, schedule colonoscopy with dr. zhong
--- NOTE | 2016-09-26 20:00 | NUR ---
[facility]. HAD ALL HER BELONGINGS, WAS GIVEN DISCHARGE PACKET AND WAS EXPLAINED HER FOLLOW UP APPOINTMENT AND TO CALL AND MAKE AN APPOINTMENT TOMORROW/ HAD ALL PERSCRIPTIONS ADN WAS EXPLAINED ALL SYMPTOMS TO REPORT (CHEST PAIN, FEVER, SOB, ANYTHING OUT OF THE NORMAL FOR HER, GI BLEEDING, ETC).
--- NOTE | 2016-09-26 20:06 | NUR ---
WAS TOLD WAS AWARE OF CURRENT LABS IN REPORT.
--- NOTE | 2016-09-26 20:18 | ED MED RECONCILIATION SUMMARY ---
Patient: NELSON COPE Medication Reconciliation Report [facility] VisitID: [id number] [address] [place] [address] 65y, F Registration Date/Time: 09/25/2016 Weight: 81.6 kg Height/Length: 69 in. BMI: 26.6 ALLERGIES: NSAIDs The patient's Home Medications are listed below: THE FOLLOWING MEDICATIONS NEED TO BE RECONCILED: Albuterol Sulfate Oral Ascorbic Acid Oral Co-Enzyme Q-10 Oral Eszopiclone Oral Maxalt Oral Nasonex Nasal Qvar Inhalation Robaxin-750 Oral Tramadol HCL Oral Venlafaxine HCl Oral Vitamin E Oral ZyrTEC Allergy Oral The source(s) of the original Home Medication information: patient The following Medications were given to the patient in the Emergency Department: PROTONIX [IVP] IVP 80 mg, administered: 09/25/2016 8:06:00 PM The following Medications were prescribed to the patient: None.
--- NOTE | 2016-09-26 20:18 | ED MAR SUMMARY ---
..... Medication Administration Record [facility] [address] [place] [address] Patient: NELSON COPE Visit ID: [id number] 65y, F Weight: 81.6 kg Height/Length: 69 in BMI: 26.6 ALLERGIES: NSAIDs Given 20:06 09/25/2016 Ligia Chambers, Medication Administered: PROTONIX [IVP] (PANTOPRAZOLE SODIUM), Dose: 80 mg IVP, Site: #1 left AC. Medication Ordered: Protonix IVP 80mg 80 mg (Mix in NS 20ml over 4min).
--- NOTE | 2016-09-26 20:18 | ED MAR SUMMARY ---
..... Medication Administration Record [facility] [address] [place] [address] Patient: NELSON COPE Visit ID: [id number] 65y, F Weight: 81.6 kg Height/Length: 69 in BMI: 26.6 ALLERGIES: NSAIDs Given 20:06 09/25/2016 Ligia Chambers, Medication Administered: PROTONIX [IVP] (PANTOPRAZOLE SODIUM), Dose: 80 mg IVP, Site: #1 left AC. Medication Ordered: Protonix IVP 80mg 80 mg (Mix in NS 20ml over 4min).
--- NOTE | 2016-09-26 20:18 | ED DISCHARGE INSTRUCTIONS ---
Patient: NELSON COPE General Instructions [facility] VisitID: [id number] [address] [place] [address] 65y, F Registration Date/Time: 09/25/2016 Major GI bleed with melena. Severe acute anemia associated with acute blood loss. INSTRUCTIONS Follow-up: Screening today revealed the patient's blood pressure to be in the pre-hypertensive range. The patient was admitted and blood pressure will be managed during the admission. (Electronically signed by Hector Flores Dr. 09/26/2016 20:17)
--- NOTE | 2016-09-26 20:18 | ED MED RECONCILIATION SUMMARY ---
Patient: NELSON COPE Medication Reconciliation Report [facility] VisitID: [id number] [address] [place] [address] 65y, F Registration Date/Time: 09/25/2016 Weight: 81.6 kg Height/Length: 69 in. BMI: 26.6 ALLERGIES: NSAIDs The patient's Home Medications are listed below: THE FOLLOWING MEDICATIONS NEED TO BE RECONCILED: Albuterol Sulfate Oral Ascorbic Acid Oral Co-Enzyme Q-10 Oral Eszopiclone Oral Maxalt Oral Nasonex Nasal Qvar Inhalation Robaxin-750 Oral Tramadol HCL Oral Venlafaxine HCl Oral Vitamin E Oral ZyrTEC Allergy Oral The source(s) of the original Home Medication information: patient The following Medications were given to the patient in the Emergency Department: PROTONIX [IVP] IVP 80 mg, administered: 09/25/2016 8:06:00 PM The following Medications were prescribed to the patient: None.
--- NOTE | 2016-09-26 20:18 | ED DISCHARGE INSTRUCTIONS ---
Patient: NELSON COPE General Instructions [facility] VisitID: [id number] [address] [place] [address] 65y, F Registration Date/Time: 09/25/2016 Major GI bleed with melena. Severe acute anemia associated with acute blood loss. INSTRUCTIONS Follow-up: Screening today revealed the patient's blood pressure to be in the pre-hypertensive range. The patient was admitted and blood pressure will be managed during the admission. (Electronically signed by Hector Flores Dr. 09/26/2016 20:17)
--- NOTE | 2016-09-26 22:04 | CONSULTATION REPORT ---
DATE OF CONSULTATION: 09/26/2016 CHIEF COMPLAINT: 1. Lightheadedness and near-syncope HISTORY OF PRESENT ILLNESS: The patient is a 65-year-old woman who presented to the emergency department with near-syncope and lightheadedness, was found to be profoundly anemic. She reports having had a black bowel movement today after admission. The patient reports she has been stressed over the recent of her sister. She had a similar presentation in 2014, at that time presenting with melena. At that time, she had a colonoscopy as well and describes no specific bleeding sources found. On this occasion, she was found to have low iron and has been anemic in the past when she has tried to donate blood. This tiredness and weakness has been going on now for about 2 weeks and symptoms became acutely worse today. MEDICAL/SURGICAL HISTORY: Past medical history: Sleep disorder, chronic back, foot and ankle pain, depression, asthma, anxiety. Past surgery: Bunionectomy, tonsillectomy, heel spur surgery, bilateral cataract surgery, and diagnostic laparoscopy for female diseases, none of which were found. She also had a tubal ligation. MEDICATIONS: 1. Epizone 3 mg p.o. daily. 2. Tramadol 50 mg b.i.d. 3. Venlafaxine 37.5 daily. 4. Montelukast 10 mg p.o. daily. 5. Norethindrone 10 mg p.o. q.48 hours, every other day, that is. 6. Estradiol 0.5 mg every other day. 7. Maxalt 10 mcg as needed. 8. Restasis 0.05 by mouth b.i.d. 9. Zyrtec 10 mg daily. 10. Nutritional supplements. ALLERGIES: 1. ASPIRIN. 2. NONSTEROIDAL ANTI-INFLAMMATORY DRUGS. 3. CATS. SOCIAL HISTORY: The patient is single. 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 She has 3 dogs at home. She is with 2 spontaneous ABs. She rarely takes alcohol. FAMILY HISTORY: Her father is alive at 89. Mother of Alzheimer dementia at 86. Her sister recently from complications related to diabetes. REVIEW OF SYSTEMS: A multipoint review of systems was obtained on 09/25/[address] Vazquez and is reviewed at this time. There are no additional symptoms noted. PHYSICAL EXAMINATION: GENERAL: The patient was alert and cooperative. HEENT: Her ears and nose without gross external lesions. Eyes are equal. There is no icterus. NECK: Without palpable masses or thyromegaly. CHEST: Clear without wheeze or rales. HEART: Regular, without murmur or gallop. ABDOMEN: Reveals no localized tenderness, hepatomegaly or ascites. LAB/IMAGING: Lab tests were reviewed. Her initial hemoglobin and hematocrit are 6.9 and 22.8 with a repeat this morning at 7.5 and 24.3. Her chemistry showed normal electrolytes. INR was 1. IMPRESSION: 1. Gastrointestinal bleed, possibly upper based on melena. PLAN: I recommended patient proceed with esophagogastroduodenoscopy as described to her and the patient would like to proceed with this. In the event that esophagogastroduodenoscopy is negative for bleeding sources then a subsequent completion colonoscopy at a separate date will be encouraged and if all this proves to be nonproductive then even possibly a capsule enteroscopy.
--- NOTE | 2016-09-26 22:07 | OPERATIVE REPORT ---
DATE OF SURGERY: 09/26/2016 SURGEON: Kwaku Hurt MD PREOPERATIVE DIAGNOSIS: 1. Gastrointestinal bleed POSTOPERATIVE DIAGNOSES: 1. Large hiatal hernia PROCEDURE PERFORMED: 1. Esophagogastroduodenoscopy with biopsies ANESTHESIA: Total IV general. COMPLICATIONS: No intraoperative complications were encountered. INDICATIONS: The patient is a 65-year-old woman presenting with lightheadedness and profound anemia with the history of melenic stool. SURGICAL TECHNIQUE: The patient was taken to endoscopy suite, where total IV general was administered and patient placed in the left lateral decubitus position. A well- lubricated endoscope was inserted down the stomach and esophagus. The patient had a large type 1 sliding hiatal hernia. There was no active bleeding seen. There was no coffee- grounds material or red blood. The first and second parts of the duodenum were examined and there were no signs of ulceration or other lesions. On withdrawal, a retroflexed view confirmed the large hiatal hernia. A single biopsy was taken for Helicobacter testing. On withdrawal, the squamocolumnar junction at the GE junction was carefully viewed and there were no signs of erosions or Patti-Rodriguez tears. The patient left in good condition.
== END 2016-09-26 20:00 | disposition home or self-care (01) ==
LOC: ED SRH 18:37 → TRANS SRH 20:08 → ACUTE2 SRH 20:08
PROVIDERS: Surgery; ADMIT Family Medicine
PROC: 30233N1 Transfusion of Nonautologous Red Blood Cells into Peripheral Vein, Percutaneous Approach (ICD-10-PCS; 2016-09-25)
PROC: 0DB68ZX Excision of Stomach, Via Natural or Artificial Opening Endoscopic, Diagnostic (ICD-10-PCS; principal; 2016-09-26 15:15)
DX: K92.1 Melena (principal); D62 Acute posthemorrhagic anemia; K44.9 Diaphragmatic hernia without obstruction or gangrene; J45.909 Unspecified asthma, uncomplicated
CPT/HCPCS: 29229; 29230; 50004; 60001; 82943; 83526; 85241; 90001; 90047; 90074; 90098; 90100; 90155; 90616; 90705; 91004; 91162; 91163; 91320; 91544; 91556; 92610; 92668; 92670; 92720; 94001; 94060; 95059

== ENCOUNTER 2016-10-27 07:38 | Day surgery (SDC) | payer OTHER ==
[~2016-10-27] VITALS: Ht 175.3 cm; Wt 93.4 kg
[~2016-10-27 07:38] MED LIST changes: +ESTRADIOL0.5 MG PO; +IRON325 MG PO; +MAXALT10 MG PO; +PROAIR HFA IN; +RESTASIS0.05 % OP; +ROBAXIN-750750 MG PO; +[UNRECOGNIZED DRUG - OTHER] PO
--- NOTE | 2016-10-27 11:37 | Provider's Discharge Care Plan ---
Problem, Goal, Plan Problem List 1. Colon polyps 2. Diverticulosis
--- NOTE | 2016-10-27 11:37 | Provider's Discharge Care Plan ---
Problem, Goal, Plan Problem List 1. Colon polyps 2. Diverticulosis
--- NOTE | 2016-10-27 12:05 | OPERATIVE REPORT ---
DATE OF SURGERY: 10/27/2016 SURGEON: Kwaku Hurt MD PREOPERATIVE DIAGNOSIS: 1. Gastrointestinal blood loss POSTOPERATIVE DIAGNOSES: 1. Colon polyps 2. Diverticulosis PROCEDURE PERFORMED: 1. Colonoscopy with snare and forceps polypectomy ANESTHESIA: Total IV general. INDICATIONS: The patient is a 65-year-old woman with blood loss anemia. Recent upper GI failed to show a bleeding source. SURGICAL TECHNIQUE: The patient was taken to the endoscopy suite, where total IV general was administered and the patient was placed in the left lateral decubitus position. The well-lubricated colonoscope was advanced the length colon under direct vision. A 3 mm sessile polyp was seen at about 40 cm and was removed with the biopsy forceps for histopathology. Multiple diverticula were seen in the sigmoid colon. At about 80 cm, which appeared to be up fairly high, most likely distal transverse colon or so, a 5 mm sessile polyp was noted. It was removed with tangential application of the cautery snare and retrieved through the suction channel. The tip of the cecum and the ileocecal valve were visualized. On withdrawal, there were no further polyps or tumors. A retroflexed view of the rectum was normal, and the patient left in good condition.
[2016-10-27 12:35] VITALS: BP 142/70
== END 2016-10-27 12:50 | disposition home or self-care (01) ==
LOC: OR SRH 07:38 → SCU SRH 07:38 → OR SRH 09:45
PROVIDERS: Surgery
PROC: 0DBM8ZX Excision of Descending Colon, Via Natural or Artificial Opening Endoscopic, Diagnostic (ICD-10-PCS; principal; 2016-10-27 09:45)
PROC: 0DBN8ZX Excision of Sigmoid Colon, Via Natural or Artificial Opening Endoscopic, Diagnostic (ICD-10-PCS; principal; 2016-10-27 09:45)
DX: D12.4 Benign neoplasm of descending colon (principal); D12.5 Benign neoplasm of sigmoid colon; K57.30 Diverticulosis of large intestine without perforation or abscess without bleeding; D64.9 Anemia, unspecified; J45.909 Unspecified asthma, uncomplicated
CPT/HCPCS: 29229; 29240; 50004; 60001; 82900; 82944; 83526